=== PATIENT | female | born 1975 | race Two or more races ===

== ENCOUNTER → 2025-01-27 | Outpatient (CLI) | payer BC, OTHER, SELFPAY ==
--- NOTE | 2025-01-27 13:00 | XR_ITS ---
Examination: Breast ultrasound complete, bilateral Date and time of exam: January 27, 2025 1332 hours INDICATIONS: Mammogram February 07, 2024 8 mm focal asymmetry upper outer right breast Technique: Real-time grayscale ultrasonographic imaging bilateral breasts, including all 4 quadrants as well as nipple retroareolar and axillary regions. Findings: Sonographic images right breast Benign cysts, the largest in the 9:00 position 10 x 8 mm No solid nodules Sonographic images left breast Benign cysts, the largest in the 9:00 position 12 x 9 mm No solid nodules IMPRESSION: BI-RADS Category 2: Benign findings
--- NOTE | 2025-01-27 14:00 | XR_ITS ---
Examination: Diagnostic digital mammography, bilateral Computer aided detection 3-D breast Tomosynthesis, bilateral Date and time of exam: January 27, 2025 1317 hours Compared to mammograms dating to May 17, 2021 INDICATIONS: History left breast biopsy, family history breast cancer, history palpable lump right breast, history 8 mm focal asymmetry upper outer right breast Technique: Nonmagnified MLO, CC views of the breasts to been obtained, reconstructed from 3-D Tomosynthesis images. R2 computer aided detection program utilized for evaluation of suspicious masses and/or abnormal calcifications. 3-D Tomosynthesis images obtained. Findings: The breasts are heterogeneously dense, which may obscure small masses Focal asymmetry with breast biopsy marker is stable compared to prior studies No interval suspicious masses Impression: BI-RADS Category 2: Benign findings Recommend yearly follow-up mammography Given the patient's family history breast cancer, consider repeat bilateral breast sonography follow-up
== END | disposition home or self-care (01) ==
PROVIDERS: PCP Physician Assistant; Referring Provider Physician Assistant; Visit Provider Physician Assistant
DX: R92.323 Mammographic fibroglandular density, bilateral breasts (principal); N60.01 Solitary cyst of right breast; N60.02 Solitary cyst of left breast; Z80.3 Family history of malignant neoplasm of breast
CPT/HCPCS: 76641; 77062; 77066; G0279